=== PATIENT | male | born 1950 | race African-American/Black ===

== ENCOUNTER 2018-06-08 05:30 | Inpatient (IN) | payer OTHER ==
[~2018-06-08] VITALS: Ht 182.9 cm; Wt 96.5 kg
[2018-06-08] MEDS ORDERED: SOD CHLORIDE 0.9% 1,000 ML IV STA (05:55)
[2018-06-08] MEDS ORDERED: DEXTROSE 50% 50 ML SYRINGE IV ONE (06:30)
--- NOTE | 2018-06-08 06:46 | ERD ---
ER Documentation Chief Complaint Chief Complaint HYPOGLYCEMIC AT SNF. GLUCOSE GIVEN IN FIELD BY RA. BARAJAS This is a 68-year-old Afro-Slovenian male with past medical history of hypertension who presents to the emergency department with altered mental status. The patient resides in [place] [facility] facility. They indicated that roughly 10 PM the patient received his insulin as he also has a history of insulin-dependent diabetes mellitus. They tried to arouse him just prior to arrival but he appeared very drowsy. They took an Accu-Chek and his blood glucose was 40. 911 was called. EMS administered IM glucagon. The patient became more awake but then became confused again. When the patient arrived to the emergency department his blood glucose was rechecked and it was 50. The patient has not had any recent fever shaking or chills. The patient had a wrist band on from [facility] from May 31 at 5:57 PM on the right arm and another wristband from [facility] on June 01 at midnight The patient is a very poor historian. When I arrived at the bedside the patient was unaware of which facility he came from. There were no papers to indicate his past medical history. Therefore history is very limited. He did arrive by EMS however again I do not know which facility he arrived from where the medications that the patient currently takes.. ROS All systems reviewed and are negative except as per history of present illness. Medications Home Meds No Active Prescriptions or Reported Meds Allergies Allergies: Coded Allergies: No Known Allergy (Unverified , 06/08/18) PMhx/Soc Medical and Surgical Hx: Unable to obtain Hx Cardiac Disorders: Yes (CHF, CARDIOMYOPATHY) Hx Psychiatric Problems: Yes (PSYCHOSIS) Hx Miscellaneous Medical Probl: Yes (DM) Smoking Status: Unknown if ever smoked Physical Exam Vitals Vital Signs Date Temp Pulse Resp B/P (MAP) Pulse Ox O2 O2 Flow FiO2 Time Delivery Rate 06/08/18 98.3 113 20 107/84 98 Room Air 2.0 12:00 (92) 06/08/18 98.3 104 20 100/74 98 Nasal 2.0 11:00 (83) Cannula 06/08/18 98.3 112 20 105/82 98 Nasal 2.0 10:30 (90) Cannula 06/08/18 98.3 97 20 94/58 (70) 98 Nasal 09:30 Cannula 06/08/18 98.3 123 20 111/64 98 Venturi 08:30 (80) Mask 06/08/18 98.3 111 20 96/73 (81) 98 Nasal 2.0 07:30 Cannula 06/08/18 98.3 121 20 119/94 98 Nasal 07:30 (102) Cannula 06/08/18 98.3 121 20 109/92 100 Room Air 06:30 (98) 06/08/18 122 16 110/85 94 Nasal 3.0 05:57 (93) Cannula 06/08/18 97.6 110 18 117/85 98 05:36 (96) Physical Exam Constitutional:Well-developed. Well-nourished. Disheveled HEENT:Normocephalic. Atraumatic.Pupils were 2 mm and reactive to light bilaterally. Dry mucous membranes.No tonsillar exudates. Neck: No nuchal rigidity. No lymphadenopathy. No posterior cervical spine tenderness or step-offs. Respiratory: Not using accessory muscles of respiration.Lungs were clear to auscultation bilaterally. No rhonchi. No rales. No wheezing. Cardiovascular: Regular rate regular rhythm.No murmurs. No rubs were appreciated.S1, S2 normal. Distal pulses are palpable 2+ bilaterally. GI: Abdomen was soft. Nontender. Non Distended. No pulsatile abdominal masses or bruits. No rebound. No guarding. Bowel sounds were present and normal. ; stage I nonpainful well-circumscribed ulcer on the dorsal shaft of the penis. No tenderness. No fluctuance or induration. Normal lie to both testicles. Muscle skeletal: Full range of motion of both the upper and lower extremities bilaterally.Normal muscle tone.No assymetrical calf tenderness or swelling. Skin: No petechia, no purpura. No lesions on the palms or the soles of the feet. No maculopapular rash. Multiple pot pierce on the lateral aspects of the bilateral lower extremities. NEURO: Patient opens eyes in response to pain. Patient withdrew to pain. Patient moans uncomfortable sounds. Patient does not follow verbal command gait was unable to be observed Result Diagram: 06/08/1861806/08/18618 Results 24 hrs Laboratory Tests Test 06/08/18 05:49 06/08/18 06:19 06/08/18 07:16 06/08/18 07:20 Bedside Glucose 55 mg/dL White Blood Count 10.2 10^3/ul Red Blood Count 4.80 10^6/ul Hemoglobin 16.1 g/dl Hematocrit 44.6 % Mean Corpuscular 92.9 fl Volume Mean Corpuscular 33.5 pg Hemoglobin Mean Corpuscular 36.1 g/dl Hemoglobin Concen t Red Cell 15.6 % Distribution Width Platelet Count 99 10^3/UL Mean Platelet 10.8 fl Volume Immature 0.800 % Granulocytes % Neutrophils % 72.0 % Lymphocytes % 11.8 % Monocytes % 14.7 % Eosinophils % 0.4 % Basophils % 0.3 % Nucleated Red 0.0 /100WBC Blood Cells % Immature 0.080 10^3/ul Granulocytes # Neutrophils # 7.3 10^3/ul Lymphocytes # 1.2 10^3/ul Monocytes # 1.5 10^3/ul Eosinophils # 0.0 10^3/ul Basophils # 0.0 10^3/ul Nucleated Red 0.0 10^3/ul Blood Cells # Prothrombin Time 15.2 Sec Prothrombin Time 1.2 Ratio INR International 1.19 Normalized Ratio Activated 26.3 Sec Partial Thrombopl ast Time Sodium Level 136 mmol/L Potassium Level 3.4 mmol/L Chloride Level 94 mmol/L Carbon Dioxide 31 mmol/L Level Anion Gap 11 Blood Urea 19 mg/dl Nitrogen Creatinine 0.57 mg/dl Est Glomerular > 60 mL/min Filtrat Rate mL/min Glucose Level 45 mg/dl Calcium Level 8.6 mg/dl Total Bilirubin 0.7 mg/dl Direct Bilirubin 0.00 mg/dl Indirect 0.7 mg/dl Bilirubin Aspartate Amino 53 IU/L Transf (AST/SGOT) Alanine 44 IU/L Aminotransferase (ALT/SGPT) Alkaline 141 IU/L Phosphatase Creatine Kinase 21 IU/L Creatine Kinase 7.1 Index Creatinine Kinase 1.49 ng/ml MB (Mass) Troponin I 0.024 ng/ml Total Protein 6.8 g/dl Albumin 2.8 g/dl Globulin 4.00 g/dl Albumin/Globulin 0.70 Ratio Amylase Level 105 U/L Lipase 157 U/L POC Venous 1.1 mmol/L Lactate Free Thyroxine 4.00 ug/ml Index Thyroxine (T4) 8.3 ug/dl Triiodothyronine 48.2 % (T3) Uptake Salicylates Level < 1.0 mg/dl Acetaminophen < 10.0 ug/ml Level Ethyl Alcohol < 10.0 mg/dl Level Test 06/08/18 08:16 06/08/18 10:47 06/08/18 10:52 06/08/18 13:05 Bedside Glucose 127 mg/dL 173 mg/dL HIV (1&2) NEGATIVE Antibody Urine Color YELLOW Urine Clarity CLEAR Urine pH 6.0 Urine Specific 1.008 Monitor Urine Ketones NEGATIVE mg/dL Urine Nitrite NEGATIVE mg/dL Urine Bilirubin NEGATIVE mg/dL Urine 2+ mg/dL Urobilinogen Urine Leukocyte 1+ Hermes/ul Esterase Urine Microscopic 1 /HPF RBC Urine Microscopic 2 /HPF WBC Urine Squamous FEW /HPF Epithelial Cells Urine Bacteria FEW /HPF Urine Hemoglobin NEGATIVE mg/dL Urine Glucose 1+ mg/dL Urine Total NEGATIVE mg/dl Protein Urine Opiates Positive Screen Urine Negative Barbiturates Urine Negative Amphetamines Screen Urine Negative Benzodiazepines Screen Urine Cocaine Negative Screen Urine Negative Cannabinoids Current Medications Medications Dose Sig/Lester Start Time Status Last (Trade) Ordered Route PRN Stop Time Admin Dose Reason Admin Sodium 1,000 ml @ Q1H STAT 06/08/18 DC 06/08/18 Chloride 1,000 mls/hr IV 05:55 07:09 06/08/18 06:54 Dextrose 50 ml ONCE ONCE 06/08/18 DC 06/08/18 (D50w IV 06:30 07:09 Syringe) 06/08/18 06:31 Ondansetron 4 mg ER BRIDGE 06/08/18 HCl (Zofran PRN IV 09:00 Inj) NAUSEA/VOMITI 06/09/18 08:59 NG 650 mg ER BRIDGE 06/08/18 Acetaminophen PRN PO 09:00 (Tylenol .MILD PAIN 06/09/18 08:59 Tab) 1-3 OR TEMP IV Flush 3 ml PER 06/08/18 (NS 3 ml) PROTOCOL IV 12:30 Ondansetron 4 mg Q6H PRN 06/08/18 HCl (Zofran IV 12:30 Inj) NAUSEA/VOMITI NG 650 mg Q6H PRN 06/08/18 Acetaminophen PO .PAIN 1-3 12:30 (Tylenol OR TEMP Tab) 40 mg DAILY@06 06/09/18 Pantoprazole PO 06:00 (Protonix Tab) Enoxaparin 40 mg DAILY SC 06/09/18 Sodium 09:00 (Lovenox) Discontinue ONCE ONCE 06/08/18 DC Miscellaneous current oral XX 13:00 sulfonylur... 06/08/18 13:00 Information (* Miscellaneous Pharmacy Order) Diagnostic 1 ea 02 XX 06/09/18 06/08/18 Test (Pha) 02:00 13:00 (Accu-Chek) ONCE ONCE 06/08/18 DC Miscellaneous HYPOGLYCEMIA XX 13:00 PROTOCOL 06/08/18 13:00 Information w... (* Miscellaneous Pharmacy Order) Iohexol 150 ml STK-MED 06/08/18 DC (Omnipaque ONCE .ROUTE 14:18 300mg/ ml) 06/08/18 14:19 Sodium 100 ml @ ud STK-MED 06/08/18 DC Chloride ONCE .ROUTE 14:18 06/08/18 14:19 Procedures/MDM The patient presented to the emergency department with an acute and persistent change in their mental status. The differential diagnosis is diverse however reversible causes such as hypoglycemia, opiate overdose, thiamine deficiency were immediately considered. The patient was placed on a part time receptionist, continuous pulse oximetry and IV access was established. The patients airway was secure however hypoxic events such as anemia, shock, or severe pulmonary disease were all considered as etiologies in this patients presentation. Circulation assessed with good cap refill and did not require fluids or pressure support. Finger stick for rapid glucose determined to be abnormal at 50. Once IV access was established using a midline the patient received an amp of D50. There is no evidence of urinary tract infection. The patient did have an ulcer on the shaft of his penis with history of IV drug use. He states this is been present for several years he did not complain of any pain. However he did obtain an RPR to rule out for possible syphilis. He will be admitted to the hospitalist for continuation and monitoring of his recurrent hypoglycemia. Departure Diagnosis: Primary Impression: Hypoglycemia Condition: BRYCE Rand MD Jun 08, 2018 06:46
[2018-06-08] MEDS ORDERED: ACETAMINOPHEN 325 MG TAB PO PRN ×2 (09:00→12:30)
[2018-06-08] MEDS ORDERED: ONDANSETRON 4 MG INJ IV PRN ×2 (09:00→12:30)
[2018-06-08] MEDS ORDERED: NACL 0.9% 3 ML SYG IV SCH (12:30)
--- NOTE | 2018-06-08 12:49 | HP ---
Date/Time of Note Date/Time of Note DATE: 06/08/18 TIME: 12:33 Assessment/Plan VTE Prophylaxis Pharmacological prophylaxis: NA/contraindicated Pharm contraindication: low risk/ambulating Lines/Catheters IV Catheter Type (from Nrs): Saline Lock Assessment/Plan Assessment/Plan 68 yo man unknown past medical history presents after hypoglycemic episode after getting insulin. #Hypoglycemia - Unknown what patient's insulin regimen is. Likely got long-acting insulin. - Unknown if patient was symptomatic from hypoglycemia. - Now appears euglycemic after getting D50. - Will admit for overnight monitoring. No more insulin. - Regular diet. - In case levels drop again, may need D5 gtt. #Penile lesion - Per ED, he had a painless ulcer on inferior aspect of phallus. - Patient refused my exam. - Pending RPR, HIV #Homelessness - Apparently patient came from SNF, but no records were sent. - SW consult to find SNF, determine home meds; also next of kin. - Also will try to get records from [facility]. #R hilar fullness on CXR - Will get CT chest - Also echo DVT: lovenox GI: PPI Result Diagram: 06/08/1861806/08/18618 HPI/ROS Admit Date/Time Admit Date/Time 08 June 2018 Hx of Present Illness Mr. Whipple is a homeless man transferred to the ED from SNF for hypoglycemia. Patient was not cooperative with my history and complete physical exam. Much of history taken as collateral from ED staff. Apparently the patient was at SNF (possibly [facility], although no records were sent over with him). They indicated that roughly 10 PM the patient received his insulin as he also has a history of insulin-dependent diabetes mellitus. This morning at unknown time, nursing staff tried to arouse him but he appeared very drowsy. They took an Accu-Chek and his blood glucose was 40. 911 was called, apparently no further intervention by nursing staff. On arrival, EMS administered IM glucagon. The patient became more awake but then became con fused again. When the patient arrived to the emergency department his blood glucose was rechecked and it was 50. The patient has not had any recent fever shaking or chills. The patient had a wrist band on from [facility] from May 31 at 5:57 PM on the right arm and another wristband from [facility] on June 01 at midnight. In the ED he got D5W 50 cc, and blood glucose increased to 127. Otherwise vitals: afebrile, P 110, BP 117/85, breathing on 3L NC. Labs also showed thrombocytopenia with platelets 99. Lactate 1.1. ROS Subjective hx not possible: other (Patient refused to answer ROS questions. ) PMH/Family/Social Past Medical History Medical History: diabetes Medications Current Medications Ondansetron HCl (Zofran Inj) 4 mg ER BRIDGE PRN IV NAUSEA/VOMITING; Start 06/08/18 at 09:00; Stop 06/09/18 at 08:59 Acetaminophen (Tylenol Tab) 650 mg ER BRIDGE PRN PO .MILD PAIN 1-3 OR TEMP; Start 06/08/18 at 09:00; Stop 06/09/18 at 08:59 Coded Allergies: No Known Allergy (Unverified , 06/08/18) Past Surgical History Patient refused to answer. Social History Apparently, history of heroin and amphetamine use. Smoking Status: Unknown if ever smoked Exam/Review of Systems Vital Signs Vitals Vital Signs Date Temp Pulse Resp B/P (MAP) Pulse Ox O2 O2 Flow FiO2 Time Delivery Rate 06/08/18 122 16 110/85 94 Nasal 3.0 05:57 (93) Cannula 06/08/18 97.6 05:36 Exam Exam Gen: Unkempt, dirty appearing man in no acute distress. Eyes PERRL, no icterus, no erythema HEENT: Very poor dentition. Clear oropharynx, moist mucous membranes. Neck: No lymphadenopathy, supple. Card: Regular rate and rhythm, no murmurs Pulm: Diminished breath sounds bilaterally, otherwise clear to auscultation. Abd: Patient refused full exam. Soft, nondistended, no guarding. Ext: No clubbing, no obvious deformity. Skin: Numerous superficial excoriations over whole body, none appear acutely infected or erythematous. Very dry skin. GABRIELLE VIGIL MD Jun 08, 2018 12:44
[2018-06-08] MEDS ORDERED: IOHEXOL 300MG/ML 150 ML BTL ONE (14:18)
[2018-06-08] MEDS ORDERED: SOD CHLORIDE 0.9% 100 ML ONE (14:18)
[2018-06-08 16:30] VITALS: BP 112/65; PULSE 110; PULSE 90; RESP 18
[2018-06-08 17:10] VITALS: PULSE 115
[2018-06-08 17:39] VITALS: PULSE 96
[2018-06-08] MEDS: AMIODARONE 900 MG in DEXTROSE 5% 482 ML IV SCH (17:40)
[2018-06-08 18:51] VITALS: Ht 182.9 cm; Wt 96.5 kg
[2018-06-08] MEDS ORDERED: PENDING SANTYL ORDER FOR WOUND CARE XX PRN (19:30)
[2018-06-08 19:40] VITALS: BP 106/63; PULSE 66; RESP 19
[2018-06-08 20:00] VITALS: PULSE 93
[2018-06-08 23:49] VITALS: BP 117/66; PULSE 91; RESP 18
[2018-06-09] VITALS (12 sets, daily range): BP systolic 101–136; BP diastolic 55–69; PULSE 64–153; RESP 18–20
[2018-06-09] MEDS: AMIODARONE 900 MG in DEXTROSE 5% 482 ML IV SCH (00:53)
[2018-06-09] MEDS ORDERED: ACCU-CHEK XX SCH (02:00)
[2018-06-09] MEDS ORDERED: PANTOPRAZOLE (EC) 40 MG TAB PO SCH (06:00)
[2018-06-09] MEDS ORDERED: VANCOMYCIN IV PER PHARMACY XX SCH (08:00)
[2018-06-09] MEDS ORDERED: VANCOMYCIN 1 GM 250 ML IVPB SCH (08:00)
[2018-06-09] MEDS ORDERED: ENOXAPARIN 40 MG/0.4 ML SYG SC SCH (09:00)
--- NOTE | 2018-06-09 10:46 | PDOCDIS ---
Discharge Instructions CONDITION [id number] Patient Condition: [id number] Stable ASTRID NUÑEZ Jun 09, 2018 10:46
--- NOTE | 2018-06-09 10:54 | DS ---
Date/Time of Note Date/Time of Note DATE: 06/09/18 TIME: 10:49 Discharge Summary Admission/Discharge Info Admit Date/Time Jun 08, 2018 at 08:41 Discharge Date/Time Discharge Diagnosis #Hypoglycemia -improving now - Likely secondary to patient getting long-acting insulin before admission #Penile lesion-apparently painless ulcer on inferior aspect of phallus -patient refused further treatment and exam- Pending RPR, HIV #Homelessness-Case management looking at SNF option #R hilar fullness on CXR - - Will get CT chest - Also echo Patient Condition: Stable Procedures CT chest with contrast: IMPRESSION: No hilar or mediastinal adenopathy or mass. Borderline enlarged main pulmonary artery compatible with pulmonary hyperte nsion. Eccentric filling defect anterior wall distal right main pulmonary artery consistent with recanalized clot. No occlusive central or peripheral pulmonary embolism. Loculated right pleural effusion. Partial right lung collapse. Pleural-based atelectasis right lung. Ill-defined ground-glass nodular densities throughout the right lung and in the dependent left lower lobe compatible with mild bronchiolitis. Mild central lobular emphysema. Hx of Present Illness 68-year-old homeless man transferred to the ED from [facility] for hypoglycemia. Patient was not cooperative with my history and complete physical exam. Much of history taken as collateral from ED staff. Apparently the patient was at SNF (possibly [facility], although no records were sent over with him). They indicated that roughly 10 PM the patient received his insulin as he also has a history of insulin-dependent diabetes mellitus. This morning at unknown time, nursing staff tried to arouse him but he appeared very drowsy. They took an Accu-Chek and his blood glucose was 40. 911 was called, apparently no further intervention by nursing staff. On arrival, EMS administered IM glucagon. The patient became more awake but then became confused again. When the patient arrived to the emergency department his blood glucose was rechecked and it was 50. The patient has not had any recent fever shaking or chills. The patient had a wrist band on from [facility] from May 31 at 5:57 PM on the right arm and another wristband from [facility] on June 01 at midnight. In the ED he got D5W 50 cc, and blood glucose increased to 127. Otherwise vitals: afebrile, P 110, BP 117/85, breathing on 3L NC. Labs also showed thrombocytopenia with platelets 99. Lactate 1.1. Hospital Course Patient was admitted, sugar stabilize after getting treatment with sugar IV fluids. A1c was still pending by the time of the discharge summary. Vital signs remained stable. His tachycardic heart rate improved after getting IV amiodarone. Presently normal sinus rhythm. Patient was able to tolerate diet, rest of the vital signs are stable. Also found with some infiltrates on his CT chest, and placed on antibiotics for that. Once we find out which skilled nurse facility patient came in from, as long as his CBC and BMP are stable upon blood check later today, he will be discharged back to shelter facility today in improved condition. See printed medical reconciliation sheet for full list of discharge medications. Home Meds No Active Prescriptions or Reported Meds Primary Care Provider Not On Staff Doctor Time spent on discharge: > 30 minutes Pending Labs Laboratory Tests Test 06/08/18 10:50 06/08/18 10:52 06/08/18 13:05 06/08/18 16:45 Rapid Plasma NONREACTIVE (NR Reagin ) Urine Color YELLOW (YELLOW ) Urine Clarity CLEAR (CLEAR) Urine pH 6.0 (5.0-9.0) Urine Specific 1.008 (1.003-1 Crawley .030) Urine Ketones NEGATIVE mg/dL (NEGATIV E) Urine Nitrite NEGATIVE mg/dL (NEGATIV E) Urine NEGATIVE Bilirubin mg/dL (NEGATIV E) Urine 2+ Urobilinogen mg/dL (NEGATIV E) Urine Leukocyte 1+ Esterase Hermes/ul (NEGATI VE) Urine 1 /HPF (0-5) Microscopic RBC Urine 2 /HPF (0-5) Microscopic WBC Urine Squamous FEW /HPF (FEW) Epithelial Cell s Urine Bacteria FEW /HPF (NONE SEEN) Urine NEGATIVE Hemoglobin mg/dL (NEGATIV E) Urine Glucose 1+ mg/dL (NEGATIV E) Urine Total NEGATIVE Protein mg/dl (NEGATIV E) Urine Opiates Positive (NEGA Screen TIVE) Urine Negative (NEGA Barbiturates TIVE) Urine Negative (NEGA Amphetamines TIVE) Screen Urine Negative (NEGA Benzodiazepines TIVE) Screen Urine Cocaine Negative (NEGA Screen TIVE) Urine Negative (NEGA Cannabinoids TIVE) Bedside 173 Glucose mg/dL (70-220) Troponin I 0.021 ng/ml (0.000-0 .120) Test 06/08/18 17:54 Bedside 291 Glucose mg/dL (70-220) Microbiology Date/Time Source Procedure Growth Status 06/08/18 13:34 Nasopharyngeal Influenza Types A,B Direct EIA - Final Complete 06/08/18 10:50 Blood Blood Culture - Preliminary Gram Pos Resulted Cocci In Pair,Cluster ASTRID NUÑEZ Jun 09, 2018 10:54
[2018-06-09] MEDS ORDERED: VANCOMYCIN HCL 1.25 GM in SOD CHLORIDE 0.9% 250 ML IVPB SCH ×2 (14:00→17:00)
--- NOTE | 2018-06-09 14:37 | RADRPT ---
Echocardiogram Report Patient Name: RANJANA BOOKERPatient ID: [id number] : 1950 (68y 2m)Study Date: 06/09/2018 7:46:38 AM Gender: MAccession #: [id number] Tech: Mariel Salvador [facility] Location: 601 Ref.Physician: GABRIELLE VIGIL Height(Cm): BSA: Weight(Kg): Quality: AdequateAccount #: Procedures: Echocardiographic Report: Transthoracic echocardiogram with complete 2D, M-Mode, and doppler examination. Indications: Pulmonary vascular congestion. Measurements: 2D/M Mode Doppler Measurement Value Normal Range Measurement Value Normal Range LVIDd 2D 4.8 [ 4.2 - 5.8 ] cm AV Peak Eriberto 1.6 [ 100.0 - 170.0 ] cm/sec LVIDs 2D 5.0 [ 2.5 - 4.0 ] cm AV Peak PG 10.0 [ 2.0 - 9.0 ] mmHg LVPWd 2D 1.0 [ 0.6 - 1.0 ] cm LVOT Peak Eriberto 0.9 [ 70.0 - 110.0 ] cm/sec IVSd 2D 1.1 [ 0.6 - 1.0 ] cm LVOT Peak PG 3.0 [ 2.0 - 6.0 ] mmHg IVS/LVPW 2D 1.1 ratio MV E Peak Eriberto 1.0 [ 60.0 - 130.0 ] cm/sec AoR Diam 2D 2.8 [ 2.6 - 3.4 ] cm MV Decel Time 180 [ 104 - 258 ] msec LA/Ao 2D 2 ratio Lat E` Eriberto 0.1 [ 10.0 - 15.0 ] cm/sec LA Dimen 2D 4.5 [ 3.0 - 4.0 ] cm TR Peak Eriberto 2.5 [ 100.0 - 280.0 ] cm/sec TR Peak PG 24.0 mmHg RVSP 27.0 [ 10.0 - 36.0 ] mmHg RA Pressure 3.0 mmHg Findings: Left Ventricle: Normal left ventricular systolic function. Normal left ventricular cavity size. Mild concentric left ventricular hypertrophy. Ejection fraction is visually estimated at 30 %. Tissue Doppler/Mitral Doppler indices are consistent with restrictive physiology with markedly elevated left atrial pressure (Stage III-IV diastolic dysfunction). Right Ventricle: Normal right ventricular size. Normal right ventricular systolic function. Left Atrium: There is mild enlargement of left atrium. Right Atrium: There is mild enlargement of right atrium. Mitral Valve: Mitral valve leaflets appear mildly thickened. Mild mitral annular calcification. Mild mitral valve regurgitation. Aortic Valve: No significant aortic stenosis or insufficiency. Aortic cusps appear mildly calcified. Tricuspid Valve: Normal appearance and function of the tricuspid valve with trace physiologic regurgitation. Normal right ventricular systolic pressure. Pulmonic Valve: Normal pulmonic valve appearance. Pericardium: Normal pericardium with no significant pericardial effusion. Aorta: Normal aortic root. IVC: Normal size and normal respiratory collapse consistent with normal right atrial pressure. Conclusions: Normal left ventricular systolic function. Normal left ventricular cavity size. Mild concentric left ventricular hypertrophy. Ejection fraction is visually estimated at 30 %. Tissue Doppler/Mitral Doppler indices are consistent with restrictive physiology with markedly elevated left atrial pressure (Stage III-IV diastolic dysfunction). There is mild enlargement of left atrium. Mitral valve leaflets appear mildly thickened. Mild mitral annular calcification. Mild mitral valve regurgitation. No significant aortic stenosis or insufficiency. Aortic cusps appear mildly calcified. Normal appearance and function of the tricuspid valve with trace physiologic regurgitation. Normal right ventricular systolic pressure. Electronically Signed By: Fer Islas 2018-06-09 14:36:20 PDT
[2018-06-09] MEDS ORDERED: INSULIN ASPART [NOVOLOG] 3 ML PEN SC ONE (15:30)
== END 2018-06-09 19:55 | DRG 641 ==
LOC: E/R 05:30 → 6WM 08:41
PROVIDERS: ADMIT Internal Medicine; ATTEND Hospitalist
DX: E16.2 Hypoglycemia, unspecified (principal); N48.5 Ulcer of penis; Z59.0 Homelessness; R00.0 Tachycardia, unspecified
CPT/HCPCS: 36415; 70450; 71045; 71260; 80053; 80061; 80307; 81001; 82150; 82550; 82553; 82962; 83036; 83605; 83690; 83735; 84100; 84436; 84443; 84479; 84484; 85025; 85610; 85730; 86592; 86703; 87040; 87400; 90686; 93005; 93306; 96374; J0282; J1650; J1815; J3370; J7030; J7050; J7060; Q9967